=== PATIENT | female | born 1980 ===

== ENCOUNTER 2018-12-18 22:26 | Inpatient (IN) | payer OTHER ==
[2018-12-18] MEDS ORDERED: Sodium Chloride 0.9% 1,000 ML IV STA (23:52)
[2018-12-19 00:26] LABS: BASO % 0.2 % (0.0-2.0); EOS % 0.3 % (0.0-4.0); HEMOGLOBIN 12.8 g/dL (11.0-16.0); LYMPH # 0.5 K/uL (1.0-4.3); LYMPH % 3.6 % (20.0-40.0); MEAN CELL VOLUME 90.2 fL (81.0-99.0); MEAN CORPUSCULAR HEMOGLOBIN 29.4 pg (27.0-31.0); MEAN CORPUSCULAR HGB CONC 32.6 g/dL (33.0-37.0); MEAN PLATELET VOLUME 8.9 fL (7.2-11.7); MONO # 0.6 K/uL (0.0-0.8); MONO % 4.6 % (0.0-10.0); NEUT # 12.4 K/uL (1.8-7.0); NEUT % 91.3 % (50.0-75.0); PLATELET COUNT 280 K/uL (130-400); RBC 4.34 Mil/uL (3.80-5.20); RED CELL DISTRIBUTION WIDTH 13.9 % (11.5-14.5); WHITE BLOOD COUNT 13.6 K/uL (4.8-10.8)
[2018-12-19 00:31] LABS: VENOUS BLOOD GAS BASE EXCESS 1.7 mmol/L (0.0-2.0); VENOUS BLOOD GAS PCO2 38 mmHg (40-60); VENOUS BLOOD GAS PO2 32 mm/Hg (30-55); VENOUS BLOOD PH 7.44 (7.32-7.43)
[2018-12-19 00:40] LABS: ALB/GLOB RATIO 1.3 (1.0-2.1); ALBUMIN 4.1 g/dL (3.5-5.0); ALT/SGPT 18 U/L (9-52); AMYLASE 102 U/L (30-110); AST/SGOT 20 U/L (14-36); BLOOD UREA NITROGEN 15 mg/dL (7-17); CALCIUM 8.5 mg/dl (8.6-10.4); GFR NON-AFRICAN AMERICAN > 60; LIPASE 81 U/L (23-300)
[2018-12-19 01:24] LABS: HCG,QUALITATIVE URINE NEGATIVE (NEGATIVE)
[2018-12-19 01:28] LABS: SQUAMOUS EPITHIAL 2 /hpf (0-5); URINE BACTERIA RARE (<OCC); URINE BILIRUBIN NEGATIVE (NEGATIVE); URINE CLARITY Clear (Clear); URINE COLOR Straw (YELLOW); URINE GLUCOSE (UA) NORMAL (Normal); URINE LEUKOCYTE ESTERASE 2+ Leu/uL (Negative); URINE PROTEIN NEGATIVE (NEGATIVE); URINE UROBILINOGEN NORMAL mg/dL (0.2-1.0)
--- NOTE | 2018-12-19 01:45 | C.PDOC ---
History Of Present Illness 38 year old female presents to the emergency department with complaints of headache, bodyaches, vomiting, and diffuse abdominal pain which began this morning. Patient also reports developing a fever and taking Tylenol at noon, but the fever returned. Upon arrival, patient's temperature was measured to be 102.8F. HPI: Influenza Time Seen by Provider: 12/18/18 23:19 Chief Complaint: Flu-like Symptoms History Per: Patient Exam Limitations: no limitations Onset/Duration Of Symptoms: Hrs Symptoms include: fever, headache, bodyaches, vomiting Past Medical History Reviewed: Historical Data, Nursing Documentation, Vital Signs Vital Signs: Last Vital Signs Temp 102.8 F H 12/18/18 22:44 Pulse 129 H 12/18/18 22:44 Resp 20 12/18/18 22:44 BP 107/70 12/18/18 22:44 Pulse Ox 100 12/18/18 22:44 - Medical History PMH: Gastritis Surgical History: Appendectomy Family History: States: No Known Family Hx - Social History Hx Alcohol Use: No Hx Substance Use: No - Immunization History Hx Tetanus Toxoid Vaccination: No Hx Influenza Vaccination: No Hx Pneumococcal Vaccination: No Review Of Systems Except As Marked, All Systems Reviewed And Found Negative. Constitutional: Positive for: Fever Gastrointestinal: Positive for: Vomiting, Abdominal Pain Musculoskeletal: Positive for: Other (body aches) Neurological: Positive for: Headache Physical Exam - Physical Exam Appears: Non-toxic, No Acute Distress Skin: Normal Color, Warm, Dry Head: Atraumatic, Normacephalic Eye(s): bilateral: Normal Inspection, PERRL, EOMI Ear(s): Bilateral: Normal Nose: Normal Oral Mucosa: Moist Throat: Normal, No Erythema, No Exudate Neck: Normal, Supple Chest: Symmetrical, No Tenderness Cardiovascular: Rhythm Regular, No Murmur Respiratory: Normal Breath Sounds, No Rales, No Rhonchi, No Wheezing Gastrointestinal/Abdominal: Soft, Tenderness (diffuse), No Guarding, No Rebound Neurological/Psych: Oriented x3, Normal Speech, Normal Cognition - Laboratory Results Result Diagrams: 12/19/18 00:21 12/19/18 00:21 Lab Results: pO2 32 mm/Hg (30-55) 12/19/18 00:28 VBG pH 7.44 (7.32-7.43) H 12/19/18 00:28 VBG pCO2 38 mmHg (40-60) L 12/19/18 00:28 VBG HCO3 25.4 mmol/L 12/19/18 00:28 VBG Total CO2 27.0 mmol/L (22-28) 12/19/18 00:28 VBG O2 Sat (Calc) 68.7 % (40-65) H 12/19/18 00:28 VBG Base Excess 1.7 mmol/L (0.0-2.0) 12/19/18: VBG Potassium 3.5 mmol/L (3.6-5.2) L 12/19/18:28 Sodium 135.0 mmol/l (132-148) 12/19/18:28 Chloride 102.0 mmol/L (98-107) 12/19/18: Glucose 112 mg/dl (65-105) H 12/19/18 00:28 Lactate 1.0 mmol/L (0.7-2.1) 12/19/18: Total Bilirubin 0.5 mg/dL (0.2-1.3) 12/19/18 00:21 AST 20 U/L (14-36) 12/19/18 00:21 ALT 18 U/L (9-52) 12/19/18 00:21 Alkaline Phosphatase 87 U/L (38-126) 12/19/18 00:21 Total Protein 7.2 g/dL (6.3-8.3) 12/19/18 00:21 Albumin 4.1 g/dL (3.5-5.0) 12/19/18 00:21 Globulin 3.1 gm/dL (2.2-3.9) 12/19/18 00: Albumin/Globulin Ratio 1.3 (1.0-2.1) 12/19/18 00:21 Amylase 102 U/L (30-110) 12/19/18 00:21 Lipase 81 U/L (23-300) 12/19/18 00:21 Urine HCG, Qual Negative (NEGATIVE) 12/19/18 01:17 Urine HCG, Qual Negative (NEGATIVE) 12/19/18 01:17 - ECG O2 Sat by Pulse Oximetry: 100 - Progress ED Course And Treament: Plan: VBG Chemistry CBC CXR Motrin 600mg PO NaCl IV Fluids Zofran 4mg IVP Blood Culture Urine Culture Influenza Serology HCG Qualitative Urine Urinalysis Lactate negative, white count elevated, flu serology negative. Upon re-evaluation, patient's temperature decreased and blood pressure decreased. Patient found to have positive orthostatic vitals. Patient started on fluids again. Rocephin IV started for UTI. 03:45, hospitalist contacted with no answer. 4:00 hospitalist contacted with no answer. 4:46 hospitalist contacted. - Physician Consult Information Physician Contacted: Bang Riley Outcome Of Conversation: accepted to [place] for observation Disposition - Disposition Disposition: HOSPITALIZED Disposition Time: 05:23 Condition: FAIR - Clinical Impression Clinical Impression: Influenza-like illness, Lightheadedness, UTI (urinary tract infection) - PA / [employer]ER / Resident Statement MD/DO has reviewed & agrees with the documentation as recorded. - Scribe Statement The provider has reviewed the documentation as recorded by the Scribe (Aris Medellin) All medical record entries made by the Scribe were at my direction and personall y dictated by me. I have reviewed the chart and agree that the record accurately reflects my personal performance of the history, physical exam, medical decision making, and the department course for this patient. I have also personally directed, reviewed, and agree with the discharge instructions and disposition. Decision To Admit - Pt Status Changed To: Hospital Disposition Of: Observation - . Bed Request Type: Regular Admitting Physician: Bang Riley Patient Diagnosis: Influenza-like illness, Lightheadedness, UTI (urinary tract infection)
[2018-12-19 02:04] LABS: BANDS 3 % (0-2); LYMPHOCYTE 3 % (20-40); MONOCYTE 4 % (0-10); NEUTROPHIL 90 % (50-75); PLATELET ESTIMATE NORMAL (NORMAL); TOTAL CELLS COUNTED 100
[2018-12-19 02:12] LABS: URINE BLOOD NEGATIVE (NEGATIVE)
[2018-12-19] MEDS ORDERED: Sodium Chloride 0.9% 1,000 ML IV STA ×2 (03:28→05:22)
[2018-12-19] MEDS ORDERED: Sodium Chloride 0.9% 1,000 ML ONE (05:31)
--- NOTE | 2018-12-19 05:34 | CP.PCM.HP ---
<Naveen Hurst - Last Filed: 12/19/18 06:37> History of Present Illness - History of Present Illness History of Present Illness: cc my whole body hurts and it jara when i pee and i have fevers help me 38F with a PMHx of anemia presents to the ED with a 5 day hx of intermittent dysuria/urinary frequency and a one day hx of fevers, abdominal discomfort, generalized body aches and nausea w/ vomiting x2. Pt says todays symptoms of fevers and myalgias began very quickly. Pt reports taking tylenol 500mg which helped with the fevers and aches but after a short time began to feel worse. States she vomited her food and felt very nauseas. Pt also reports a headache and feeling weak since the onset of todays symptoms. She denies any change in urine color, change in stools, night sweats, recent weight loss, sore throat, dysphagia. Pt denies any sick contacts at home. ROS: pos+ fevers, N/V, Abd pain, headache, dysuria, increased frequency, myalgias, generalized body aches w/ fatigue, vomit x2 neg- CP, SOb, Palps, cough, blood in urine/ stool/ vomit, seizures, sick contacts, recent travel, recent illness, weight changes, PMD: none PMHx: anemia PSx: Appendectomy 1998 in [place], R knee Sx 2010 in [place] FH: Mom DM HTN, grandfather CVA SocHx: lives home with 3 kids, and father, stay at home mom, denies smoking ETOH or drugs Present on Admission - Present on Admission Any Indicators Present on Admission: No Review of Systems - Constitutional Constitutional: Fever, Headache - Gastrointestinal Gastrointestinal: Abdominal Pain, Vomiting - Genitourinary Genitourinary: Dysuria, Urinary Frequency - Musculoskeletal Musculoskeletal: Muscle Weakness, Myalgias - Neurological Neurological: Dizziness, Headaches Past Patient History - Past Social History Smoking Status: Never Smoked - GASTROINTESTINAL Hx Gastritis: Yes - PSYCHIATRIC Hx Substance Use: No - SURGICAL HISTORY Hx Appendectomy: Yes - ANESTHESIA Hx Anesthesia: Yes Hx Anesthesia Reactions: No Meds Allergies/Adverse Reactions: Allergies Allergy/AdvReac Type Severity Reaction Status Date / Time No Known Allergies Allergy Verified 12/18/18 22:50 Physical Exam - Constitutional Appears: Non-toxic, No Acute Distress - Head Exam Head Exam: ATRAUMATIC, NORMAL INSPECTION - Eye Exam Eye Exam: EOMI, Normal appearance - ENT Exam ENT Exam: Mucous Membranes Moist - Neck Exam Neck exam: Positive for: Normal Inspection. Negative for: Lymphadenopathy - Respiratory Exam Respiratory Exam: Clear to Auscultation Bilateral, NORMAL BREATHING PATTERN. absent: Rales, Wheezes - Cardiovascular Exam Cardiovascular Exam: RRR, +S1, +S2 - GI/Abdominal Exam GI & Abdominal Exam: Soft, Tenderness (w/ deep palpation of lower quadrants). absent: Distended, Firm, Rigid - Exam Additional comments: suprapuibic tenderness, no bladder fullness felt - Extremities Exam Extremities exam: Positive for: pedal pulses present - Neurological Exam Neurological exam: Alert, CN II-XII Intact, Normal Gait, Oriented x3 - Psychiatric Exam Psychiatric exam: Normal Affect, Normal Mood - Skin Skin Exam: Dry, Normal Color, Warm Results - Vital Signs Recent Vital Signs: Last Vital Signs Temp 99.3 F 12/19/18 02:38 Pulse 86 12/19/18 02:38 Resp 16 12/19/18 02:38 BP 97/62 L 12/19/18 02:38 Pulse Ox 100 12/19/18 05:24 - Labs Result Diagrams: 12/19/18 00:21 12/19/18 00:21 Labs: Laboratory Results - last 24 hr 12/18/18 12/19/18 12/19/18 23:24 00:21 00:21 WBC 13.6 H RBC 4.34 Hgb 12.8 Hct 39.1 MCV 90.2 MCH 29.4 MCHC 32.6 L RDW 13.9 Plt Count 280 MPV 8.9 Neut % (Auto) 91.3 H Lymph % (Auto) 3.6 L [place] % (Auto) 4.6 Eos % (Auto) 0.3 Baso % (Auto) 0.2 Neut # (Auto) 12.4 H Lymph # (Auto) 0.5 L [place] # (Auto) 0.6 Eos # (Auto) 0.0 Baso # (Auto) 0.0 Neutrophils % (Manual) 90 H Band Neutrophils % 3 H Lymphocytes % (Manual) 3 L Monocytes % (Manual) 4 Platelet Estimate Normal pO2 VBG pH VBG pCO2 VBG HCO3 VBG Total CO2 VBG O2 Sat (Calc) VBG Base Excess VBG Potassium Glucose Lactate Sodium 134 Potassium 3.9 Chloride 100 Carbon Dioxide 26 Anion Gap 12 BUN 15 Creatinine 0.7 Est GFR ( Amer) > 60 Est GFR (Non-Af Amer) > 60 Random Glucose 112 H Calcium 8.5 L Total Bilirubin 0.5 AST 20 ALT 18 Alkaline Phosphatase 87 Total Protein 7.2 Albumin 4.1 Globulin 3.1 Albumin/Globulin Ratio 1.3 Amylase 102 Lipase 81 Venous Blood Potassium Urine Color Urine Clarity Urine pH Ur Specific [place] Urine Protein Urine Glucose (UA) Urine Ketones Urine Blood Urine Nitrate Urine Bilirubin Urine Urobilinogen Ur Leukocyte Esterase Urine WBC (Auto) Urine RBC (Auto) Ur Squamous Epith Cells Urine Bacteria Urine HCG, Qual Influenza Typ A,B (EIA) Negative for flu a/b 12/19/18 12/19/18 00:28 01:17 WBC RBC Hgb Hct MCV MCH MCHC RDW Plt Count MPV Neut % (Auto) Lymph % (Auto) [place] % (Auto) Eos % (Auto) Baso % (Auto) Neut # (Auto) Lymph # (Auto) [place] # (Auto) Eos # (Auto) Baso # (Auto) Neutrophils % (Manual) Band Neutrophils % Lymphocytes % (Manual) Monocytes % (Manual) Platelet Estimate pO2 32 VBG pH 7.44 H VBG pCO2 38 L VBG HCO3 25.4 VBG Total CO2 27.0 VBG O2 Sat (Calc) 68.7 H VBG Base Excess 1.7 VBG Potassium 3.5 L Glucose 112 H Lactate 1.0 Sodium 135.0 Potassium Chloride 102.0 Carbon Dioxide Anion Gap BUN Creatinine Est GFR ( Amer) Est GFR (Non-Af Amer) Random Glucose Calcium Total Bilirubin AST ALT Alkaline Phosphatase Total Protein Albumin Globulin Albumin/Globulin Ratio Amylase Lipase Venous Blood Potassium 3.5 L Urine Color Straw Urine Clarity Clear Urine pH 6.0 Ur Specific [place] 1.003 Urine Protein Negative Urine Glucose (UA) Normal Urine Ketones Negative Urine Blood Negative Urine Nitrate Negative Urine Bilirubin Negative Urine Urobilinogen Normal Ur Leukocyte Esterase 2+ H Urine WBC (Auto) 32 H Urine RBC (Auto) < 1 Ur Squamous Epith Cells 2 Urine Bacteria Rare Urine HCG, Qual Negative Influenza Typ A,B (EIA) Assessment & Plan - Assessment and Plan (Free Text) Assessment: SIRS/ Sepsis/ Urosepsis -Tmax >102, WBCs 13.6, UA: +leuk est, neg lactate in VBG shock -Ceftriaxone, tamiflu with 3L NS bolus given once in ED -Ceftriaxone 1g q12 IVPB -LR's @150 -Tylenol 650mg po q6 for fever -f/u blood cultures, urine cultures -f/u am labs -2/2 to underlying UTI likely source Flu Like Illness -Generalized body aches -Influenza rapid test neg -Tamiflu 75mg BID -3L NS given in ED -LRs @150 -Tylenol 650 po q6 Nausea with Vomiting -Zofran 4mg q4 IVP -LRs @ 150 -advance diet as tolerated Hypotension -monitor orthostatics -sbp in 90s despite 2L of fluids -currently resolved -LRs @150 -monitor I&Os Hx of Anemia -Monitor H&H -wnl PPx Pepcid 20mg po qd HHD <Bang Riley - Last Filed: 12/20/18 05:54> Results - Vital Signs Recent Vital Signs: Last Vital Signs Temp 98.5 F 12/20/18 04:15 Pulse 113 H 12/20/18 00:00 Resp 20 12/20/18 00:00 BP 111/64 12/20/18 00:00 Pulse Ox 100 12/20/18 00:00 - Labs Result Diagrams: 12/19/18 08:13 12/19/18 00:21 Labs: Laboratory Results - last 24 hr 12/19/18 12/19/18 12/19/18 08:13 12:00 16:24 WBC 10.3 RBC 3.89 Hgb 11.5 Hct 35.6 MCV 91.4 MCH 29.6 MCHC 32.4 L RDW 14.1 Plt Count 242 MPV 9.2 Neut % (Auto) 82.9 H Lymph % (Auto) 9.4 L [place] % (Auto) 6.9 Eos % (Auto) 0.4 Baso % (Auto) 0.4 Neut # (Auto) 8.5 H Lymph # (Auto) 1.0 [place] # (Auto) 0.7 Eos # (Auto) 0.0 Baso # (Auto) 0.0 Neutrophils % (Manual) 81 H Band Neutrophils % 2 Lymphocytes % (Manual) 8 L Monocytes % (Manual) 9 Platelet Estimate Normal Anisocytosis (manual) Slight POC Glucose (mg/dL) 102 Procalcitonin 4.40 H 12/19/18 21:06 WBC RBC Hgb Hct MCV MCH MCHC RDW Plt Count MPV Neut % (Auto) Lymph % (Auto) [place] % (Auto) Eos % (Auto) Baso % (Auto) Neut # (Auto) Lymph # (Auto) [place] # (Auto) Eos # (Auto) Baso # (Auto) Neutrophils % (Manual) Band Neutrophils % Lymphocytes % (Manual) Monocytes % (Manual) Platelet Estimate Anisocytosis (manual) POC Glucose (mg/dL) 137 H Procalcitonin Assessment & Plan - Date & Time Date: 12/20/18 (I have seen and examined the patient. I agree with the findings and plan of care as documented by Dr. Hurst. Patient with pyelonephritis. SIRS positive. Hypotensive episodes. Monitor for sepsis. Initially on Rocephin. Changed to Merrem. Urine and blood cultures. Nausea and vomiting likely associated with pyelo. Symptomatic treatment. Monitor for acute changes.) Time: 05:51 Attending/Attestation - Attestation I have personally seen and examined this patient.: Yes I have fully participated in the care of the patient.: Yes I have reviewed all pertinent clinical information: Yes
[2018-12-19 08:17] LABS: BASO % 0.4 % (0.0-2.0); EOS % 0.4 % (0.0-4.0); HEMOGLOBIN 11.5 g/dL (11.0-16.0); LYMPH % 9.4 % (20.0-40.0); MEAN CELL VOLUME 91.4 fL (81.0-99.0); MEAN CORPUSCULAR HEMOGLOBIN 29.6 pg (27.0-31.0); MEAN CORPUSCULAR HGB CONC 32.4 g/dL (33.0-37.0); MEAN PLATELET VOLUME 9.2 fL (7.2-11.7); MONO # 0.7 K/uL (0.0-0.8); MONO % 6.9 % (0.0-10.0); NEUT # 8.5 K/uL (1.8-7.0); NEUT % 82.9 % (50.0-75.0); PLATELET COUNT 242 K/uL (130-400); RBC 3.89 Mil/uL (3.80-5.20); RED CELL DISTRIBUTION WIDTH 14.1 % (11.5-14.5); WHITE BLOOD COUNT 10.3 K/uL (4.8-10.8)
[2018-12-19 11:09] LABS: BANDS 2 % (0-2); LYMPHOCYTE 8 % (20-40); MONOCYTE 9 % (0-10); NEUTROPHIL 81 % (50-75); PLATELET ESTIMATE NORMAL (NORMAL); TOTAL CELLS COUNTED 100
[2018-12-19 11:13] LABS: ANISOCYTOSIS SLIGHT
[2018-12-19] MEDS: Lactated Ringer's 1,000 ML IV SCH ×3 (12:16→19:10)
[2018-12-19] MEDS: Saccharomyces Boulardi 250 mg Cap PO SCH ×2 (12:16→17:56)
--- NOTE | 2018-12-19 14:44 | CT ---
Date of service: 12/19/2018 PROCEDURE: CT Abdomen and Pelvis without intravenous contrast HISTORY: positive uti, r/o stone COMPARISON: None. TECHNIQUE: Axial and reformatted coronal and sagittal CT images of abdomen and pelvis were obtained without IV or oral contrast administration.. Contrast dose: 0 Radiation dose: Total exam DLP = 557.36 mGy-cm. This CT exam was performed using one or more of the following dose reduction techniques: Automated exposure control, adjustment of the mA and/or kV according to patient size, and/or use of iterative reconstruction technique. FINDINGS: LOWER THORAX: No evidence of acute pathology LIVER: Unremarkable. No gross lesion or ductal dilatation. GALLBLADDER AND BILE DUCTS: Unremarkable. PANCREAS: Unremarkable. No gross lesion or ductal dilatation. SPLEEN: Unremarkable. ADRENALS: Unremarkable. No mass. KIDNEYS AND URETERS: There is 3 millimeter nonobstructing calculus at the lower pole of the left kidney. There is also 4 millimeter nonobstructing calculus at the midpole of the left kidney. There is focal defect seen in the left kidney cortex likely due to prior infection or infarction. No evidence of right renal calculi. No evidence of significant hydronephrosis VASCULATURE: Unremarkable. No aortic aneurysm. No aortic atherosclerotic calcification or mural plaque present. BOWEL: Unremarkable. No obstruction. No gross mural thickening. APPENDIX: No evidence of appendicitis. PERITONEUM: Unremarkable. No free fluid. No free air. LYMPH NODES: Unremarkable. No enlarged lymph nodes. BLADDER: Mild to moderate urinary bladder wall thickening is noted. REPRODUCTIVE: The uterus is enlarged. BONES: No acute fracture. OTHER FINDINGS: None. IMPRESSION: Two nonobstructing renal calculi in the left kidney. No evidence of hydronephrosis or hydroureter. [id number] urinary bladder wall thickening. Correlate clinically for cystitis. Mildly enlarged heterogeneous uterus.
[2018-12-19] MEDS ORDERED: Iohexol 240 (50 ml) PO ONE (14:45)
[2018-12-19] MEDS ORDERED: Iodixanol 320 MG/ML 100 ML BOTTLE IV ONE (18:21)
[2018-12-19] MEDS: Meropenem 1 GM in Sodium Chloride 0.9% 100 ML IVPB SCH (20:16)
[2018-12-20] MEDS: Lactated Ringer's 1,000 ML IV SCH ×3 (02:00→21:45)
[2018-12-20] MEDS: Meropenem 1 GM in Sodium Chloride 0.9% 100 ML IVPB SCH ×3 (04:17→19:39)
--- NOTE | 2018-12-20 07:47 | CP.PCM.PN ---
<Adarsh Lindsay - Last Filed: 12/20/18 16:10> Subjective - Date & Time of Evaluation Date of Evaluation: 12/20/18 Time of Evaluation: 10:00 - Subjective Subjective: PGY1 Medicine progress note for Dr. Lewis Pt was seen and evaluated at bedside. Per the nurse, pt experienced fever (102.5 F) overnight, and was given Tylenol. There were no other acute events overnight. At present, pt is still complaining of flank pain (left greater than right). She does not feel that she is improving.. She had one episode of nonbloody emesis yesterday night but did not notify the nurse, but at present, she denies feeling nauseous. Pt is complaining of some dizziness, but denies fall or any other trauma. She also endorses a frontal headache. She continues to reports dysuria, denies hematuria. She denies blurry vision, hearing impairments, dysphagia, odynophagia, chest pain, palpitations, SOB, diarrhea, body aches, numbness, paresthesias, or any other associated symptoms at this time. Objective - Vital Signs/Intake and Output Vital Signs (last 24 hours): Temp Pulse Resp BP Pulse Ox 98.5 F 113 H 20 111/64 100 12/20/18 04:15 12/20/18 00:00 12/20/18 00:00 12/20/18 00:00 12/20/18 00:00 Intake and Output: 12/20/18 12/20/18 06:59 18:59 Intake Total 1575 Output Total 1450 Balance 125 - Medications Medications: Current Medications Acetaminophen (Tylenol 325mg Tab) 650 mg PO Q6 PRN PRN Reason: Fever >100.4 F Last Admin: 12/20/18 01:49 Dose: 650 mg Ascorbic Acid (Vitamin C 500 Mg Tab) 500 mg PO DAILY [facility] Last Admin: 12/19/18 12:17 Dose: 500 mg Lactated Ringer's (Lactated Ringer's) 1,000 mls @ 150 mls/hr IV .Q6H40M [facility] Last Admin: 12/20/18 02:00 Dose: 150 mls/hr Meropenem 1 gm/ Sodium (Chloride) 100 mls @ 100 mls/hr IVPB Q8H [facility]; Protocol Last Admin: 12/20/18 04:17 Dose: 100 mls/hr Morphine Sulfate (Morphine) 2 mg IVP Q4 PRN PRN Reason: Pain, moderate (4-7) Ondansetron HCl (Zofran Inj) 4 mg IVP Q4 PRN PRN Reason: Nausea/Vomiting Oseltamivir Phosphate (Tamiflu Cap) 75 mg PO BID [facility]; Protocol Stop: 12/24/18 06:09 Last Admin: 12/19/18 17:56 Dose: 75 mg Saccharomyces Boulardii (Florastor) 250 mg PO BID [facility] Last Admin: 12/19/18 17:56 Dose: 250 mg Tamsulosin HCl (Flomax) 0.4 mg PO DAILY [facility] Last Admin: 12/19/18 19:32 Dose: 0.4 mg - Labs Labs: 12/19/18 08:13 12/19/18 00:21 - Additional Findings Additional findings: - Constitutional Appears: Non-toxic, No Acute Distress - Head Exam Head Exam: ATRAUMATIC, NORMAL INSPECTION - Eye Exam Eye Exam: EOMI, Normal appearance - ENT Exam ENT Exam: Mucous Membranes Moist - Neck Exam Neck exam: Positive for: Normal Inspection. Negative for: Lymphadenopathy - Respiratory Exam Respiratory Exam: Clear to Auscultation Bilateral, NORMAL BREATHING PATTERN. absent: Rales, Wheezes - Cardiovascular Exam Cardiovascular Exam: RRR, +S1, +S2 - GI/Abdominal Exam GI & Abdominal Exam: Soft, Tenderness (in all four quadrants). absent: Distended, Firm, Rigid - Exam Bilateral CVA tenderness (left greater than right) Additional comments: suprapuibic tenderness - Extremities Exam Extremities exam: Positive for: pedal pulses present - Neurological Exam Neurological exam: Alert, CN II-XII Intact, Normal Gait, Oriented x3 - Psychiatric Exam Psychiatric exam: Normal Affect, Normal Mood - Skin Skin Exam: Dry, Normal Color, Warm Assessment and Plan - Assessment and Plan (Free Text) Assessment: 38F with a PMHx of anemia, pyelonephritis, nephrolithiasis presents to the ED with a 5 day hx of intermittent dysuria/urinary frequency and a one day hx of fevers, abdominal discomfort, generalized body aches and nausea w/ vomiting x2. Found to have sepsis secondary to clinical pyelonephritis, as well as nonobstructing stones Plan: Sepsis secondary to pyelonephritis Tmax 102.5, remains tachycardic Bandemia of 3 with Leukocytosis of 13.6, hypotensino requiring 3L IVF on admission Bands resolved, leucocytosis resolved, BP is in 100 Systolic, 70s diastolic Rocephin discontinued Merrem 1g q8 started (12/19) for pyelonephritis, as pt is high risk for MDR, due to recent admission for pyelonephritis in [facility]. Pt given 1 dose of gentamicin (12/20) as minimal clinical improvement after Rocephin and Merrem Tylenol 650 mg PO PRN fever/pain Morphine for pain BC x2 prelim negative x 24 hours UCx negative Infectious disease, Dr. Edwards, consulted. Nephrolithiasis Abd/Pelv CT without contrast showed 2 non obstructing stones, both less than 5 mm. No evidence of hydronephrosis or hydroureter. Mild to moderate urinary bladder wall thickening. Mildly enlarged heterogeneous uterus. Morphine 2 mg IVP q4h PRN LR at 150, Tamsulosin 0.4 mg PO daily Will strain urine Abdominal pain with Nausea with Vomiting, likely due to pyelonephritis Urine HCG is negative Abdominal/pelvic CT with PO/IV contrast shows probably acute pyelonephritis lower pole left kidney. Cortical scar upper pole left kidney. No evidence of urinary tract obstruction. Minimal fluid in cul-de-sac. Suspect fluid in endometrial cavity. Zofran 4mg q4 IVP Morphine as above Flu Like Illness Generalized body aches Influenza rapid test neg Tamiflu 75mg BID discontinued Contact precautions discontinued Hx of Anemia H/H is stable and WNL PPx No indication for GI ppx at this time SCDs for VTE ppx HHD Case discussed with Dr. Lewis <Shawn Lewis - Last Filed: 12/20/18 17:47> Objective - Vital Signs/Intake and Output Vital Signs (last 24 hours): Temp Pulse Resp BP Pulse Ox 102.8 F H 103 H 20 118/71 100 12/20/18 17:12 12/20/18 17:12 12/20/18 17:12 12/20/18 17:12 12/20/18 17:12 Intake and Output: 12/20/18 12/20/18 06:59 18:59 Intake Total 1575 2700 Output Total 1450 4000 Balance 125 -1300 - Medications Medications: Current Medications Acetaminophen (Tylenol 325mg Tab) 650 mg PO Q6 PRN PRN Reason: Fever >100.4 F Last Admin: 12/20/18 08:43 Dose: 650 mg Ascorbic Acid (Vitamin C 500 Mg Tab) 500 mg PO DAILY [facility] Last Admin: 12/20/18 12:36 Dose: 500 mg Lactated Ringer's (Lactated Ringer's) 1,000 mls @ 150 mls/hr IV .Q6H40M [facility] Last Admin: 12/20/18 15:26 Dose: 150 mls/hr Meropenem 1 gm/ Sodium (Chloride) 100 mls @ 100 mls/hr IVPB Q8H [facility]; Protocol Last Admin: 12/20/18 12:36 Dose: 100 mls/hr Gentamicin Sulfate/Sodium Chloride (Gentamicin 80mg/100ml Ns) 80 mg in 100 mls @ 100 mls/hr IVPB Q8H [facility] Morphine Sulfate (Morphine) 2 mg IVP Q4 PRN PRN Reason: Pain, moderate (4-7) Ondansetron HCl (Zofran Inj) 4 mg IVP Q4 PRN PRN Reason: Nausea/Vomiting Saccharomyces Boulardii (Florastor) 250 mg PO BID [facility] Last Admin: 12/20/18 12:29 Dose: Not Given Tamsulosin HCl (Flomax) 0.4 mg PO DAILY [facility] Last Admin: 12/20/18 12:30 Dose: Not Given - Labs Labs: 12/20/18 11:29 12/20/18 11:29 Attending/Attestation - Attestation I have personally seen and examined this patient.: Yes I have fully participated in the care of the patient.: Yes I have reviewed all pertinent clinical information, including history, physical exam and plan: Yes
[2018-12-20] MEDS: Saccharomyces Boulardi 250 mg Cap PO SCH ×3 (08:44→18:39)
[2018-12-20 11:53] LABS: BASO % 0.2 % (0.0-2.0); EOS % 0.1 % (0.0-4.0); HEMOGLOBIN 11.6 g/dL (11.0-16.0); LYMPH % 9.1 % (20.0-40.0); MEAN CELL VOLUME 90.1 fL (81.0-99.0); MEAN CORPUSCULAR HEMOGLOBIN 29.9 pg (27.0-31.0); MEAN CORPUSCULAR HGB CONC 33.2 g/dL (33.0-37.0); MEAN PLATELET VOLUME 8.7 fL (7.2-11.7); MONO % 9.7 % (0.0-10.0); NEUT # 8.5 K/uL (1.8-7.0); NEUT % 80.9 % (50.0-75.0); PLATELET COUNT 238 K/uL (130-400); RBC 3.87 Mil/uL (3.80-5.20); RED CELL DISTRIBUTION WIDTH 13.7 % (11.5-14.5); WHITE BLOOD COUNT 10.5 K/uL (4.8-10.8)
[2018-12-20 12:08] LABS: ALB/GLOB RATIO 1.2 (1.0-2.1); ALBUMIN 3.4 g/dL (3.5-5.0); ALT/SGPT 14 U/L (9-52); AST/SGOT 21 U/L (14-36); BLOOD UREA NITROGEN 4 mg/dL (7-17); CALCIUM 8.2 mg/dl (8.6-10.4); GFR NON-AFRICAN AMERICAN > 60
--- NOTE | 2018-12-20 12:19 | CT ---
Date of service: 12/19/2018 PROCEDURE: CT Abdomen and Pelvis with contrast HISTORY: r/o intrabdominal pathology, abdominal pain COMPARISON: 11:40 a.m. TECHNIQUE: Contrast dose: 100 mL Visipaque 320 Radiation dose: Total exam DLP = 1021.28 mGy-cm. This CT exam was performed using one or more of the following dose reduction techniques: Automated exposure control, adjustment of the mA and/or kV according to patient size, and/or use of iterative reconstruction technique. FINDINGS: LOWER THORAX: Unremarkable. LIVER: Unremarkable. No gross lesion or ductal dilatation. GALLBLADDER AND BILE DUCTS: Unremarkable. No calcified gallstones. No mural thickening. PANCREAS: Unremarkable. No gross lesion or ductal dilatation. SPLEEN: Unremarkable. ADRENALS: Unremarkable. No mass. KIDNEYS AND URETERS: Multiple small nonobstructing left renal calculi as seen on the earlier examination of the same date. There are bands of diminished or no enhancement extending through the medullary and cortical aspect of the kidney in the lower pole left kidney consistent with focal pyelonephritis. There is no perinephric abscess. There is no right renal calculus. There is no hydronephrosis. There is no renal mass. There is nonspecific cortical scar upper pole left kidney, possibly old infarct or prior infection. VASCULATURE: Unremarkable. No aortic aneurysm. No aortic atherosclerotic calcification or mural plaque present. BOWEL: Unremarkable. No obstruction. No gross mural thickening. APPENDIX: Appendix not identified. No secondary findings to suggest acute appendicitis. PERITONEUM: Minimal fluid in cul-de-sac. LYMPH NODES: Unremarkable. No enlarged lymph nodes. BLADDER: The bladder is mildly thick-walled, suggestive of cystitis. It is suboptimally distended. Nevertheless, correlate with urinalysis. REPRODUCTIVE: The uterus is significant for what appears to be endometrial fluid. Correlate with pelvic ultrasound examination. Stick significance uncertain. Possible cervical stenosis. Incidental 1.7 cm right ovarian cyst, presumed physiologic. Irregularly-shaped peripherally enhancing structure in right ovary measures 13 mm. Likely involuting or ruptured follicle. Similar 17 mm peripherally enhancing irregular structure in left ovary. Again, likely involuting or ruptured follicle. BONES: No acute fracture. OTHER FINDINGS: None. IMPRESSION: Probable acute pyelonephritis lower pole left kidney. Multiple small nonobstructing left renal calculi. Cortical scar upper pole left kidney. No evidence of urinary tract obstruction. Probable cystitis. Correlate with urinalysis. Minimal fluid in cul-de-sac. Suspect fluid in endometrial cavity. Correlate with pelvic ultrasound. Additional minor findings as above. These findings were discussed by telephone with the patient's nurse, Moise, at 12:13 a.m. p.m. on 12/20/2018.
[2018-12-20 12:26] LABS: BANDS 1 % (0-2); MONOCYTE 7 % (0-10); NEUTROPHIL 82 % (50-75); PLATELET ESTIMATE NORMAL (NORMAL); TOTAL CELLS COUNTED 100
[2018-12-20 12:27] LABS: ANISOCYTOSIS SLIGHT; HYPOCHROMIC SLIGHT; LYMPHOCYTE 10 % (20-40); POIKILOCYTOSIS SLIGHT
[2018-12-20] MEDS ORDERED: Gentamicin 100mg/100ml NS 100 MG/100 ML BAG IVPB ONE (12:45)
--- NOTE | 2018-12-20 13:16 | RAD ---
HISTORY: fever COMPARISON: None available TECHNIQUE: Chest PA and lateral FINDINGS: LUNGS: No focal consolidation. Please note that chest x-ray has limited sensitivity for the detection of pulmonary masses. PLEURA: No significant pleural effusion identified. No definite pneumothorax . CARDIOVASCULAR: The cardiomediastinal silhouette appears within normal limits of size. No atherosclerotic calcification present. OSSEOUS STRUCTURES: Scoliosis with curvature of the thoracic spine to the right. VISUALIZED UPPER ABDOMEN: Unremarkable. OTHER FINDINGS: None. IMPRESSION: No focal consolidation. Scoliosis with curvature of the thoracic spine to the right.
[2018-12-20] MEDS ORDERED: Gentamicin 80 mg/2mL Inj. IVPB SCH (15:15)
[2018-12-20] MEDS: Gentamicin 80 mg in 0.9% NS 80 MG/100 ML BAG IVPB SCH ×2 (18:39→23:35)
--- NOTE | 2018-12-20 20:48 | CP.PCM.CON ---
History of Present Illness - History of Present Illness History of Present Illness: dictated Past Patient History - Past Social History Smoking Status: Never Smoked - MUSCULOSKELETAL/RHEUMATOLOGICAL Hx Falls: No - GASTROINTESTINAL Hx Gastritis: Yes - PSYCHIATRIC Hx Substance Use: No - SURGICAL HISTORY Hx Appendectomy: Yes - ANESTHESIA Hx Anesthesia: Yes Hx Anesthesia Reactions: No Meds Allergies/Adverse Reactions: Allergies Allergy/AdvReac Type Severity Reaction Status Date / Time No Known Allergies Allergy Verified 12/18/18 22:50 - Medications Medications: Current Medications Acetaminophen (Tylenol 325mg Tab) 650 mg PO Q6 PRN PRN Reason: Fever >100.4 F Last Admin: 12/20/18 08:43 Dose: 650 mg Ascorbic Acid (Vitamin C 500 Mg Tab) 500 mg PO DAILY [facility] Last Admin: 12/20/18 12:36 Dose: 500 mg Lactated Ringer's (Lactated Ringer's) 1,000 mls @ 150 mls/hr IV .Q6H40M [facility] Last Admin: 12/20/18 15:26 Dose: 150 mls/hr Meropenem 1 gm/ Sodium (Chloride) 100 mls @ 100 mls/hr IVPB Q8H [facility]; Protocol Last Admin: 12/20/18 19:39 Dose: 100 mls/hr Gentamicin Sulfate/Sodium Chloride (Gentamicin 80mg/100ml Ns) 80 mg in 100 mls @ 100 mls/hr IVPB Q8H [facility] Last Admin: 12/20/18 18:39 Dose: 100 mls/hr Morphine Sulfate (Morphine) 2 mg IVP Q4 PRN PRN Reason: Pain, moderate (4-7) Last Admin: 12/20/18 18:40 Dose: 2 mg Ondansetron HCl (Zofran Inj) 4 mg IVP Q4 PRN PRN Reason: Nausea/Vomiting Saccharomyces Boulardii (Florastor) 250 mg PO BID [facility] Last Admin: 12/20/18 18:39 Dose: 250 mg Tamsulosin HCl (Flomax) 0.4 mg PO DAILY [facility] Last Admin: 12/20/18 12:30 Dose: Not Given Results - Vital Signs Recent Vital Signs: Last Vital Signs Temp 102.8 F H 12/20/18 17:12 Pulse 103 H 12/20/18 17:12 Resp 20 12/20/18 17:12 BP 118/71 12/20/18 17:12 Pulse Ox 100 12/20/18 17:12 - Labs Result Diagrams: 12/20/18 11:29 12/20/18 11:29 Labs: Laboratory Results - last 24 hr 12/19/18 12/20/18 12/20/18 21:06 06:16 11:29 WBC 10.5 RBC 3.87 Hgb 11.6 Hct 34.9 MCV 90.1 MCH 29.9 MCHC 33.2 RDW 13.7 Plt Count 238 MPV 8.7 Neut % (Auto) 80.9 H Lymph % (Auto) 9.1 L Rains % (Auto) 9.7 Eos % (Auto) 0.1 Baso % (Auto) 0.2 Neut # (Auto) 8.5 H Lymph # (Auto) 1.0 Rains # (Auto) 1.0 H Eos # (Auto) 0.0 Baso # (Auto) 0.0 Neutrophils % (Manual) 82 H Band Neutrophils % 1 Lymphocytes % (Manual) 10 L Monocytes % (Manual) 7 Platelet Estimate Normal Hypochromasia (manual) Slight Poikilocytosis (manual Slight Anisocytosis (manual) Slight Sodium Potassium Chloride Carbon Dioxide Anion Gap BUN Creatinine Est GFR ( Amer) Est GFR (Non-Af Amer) POC Glucose (mg/dL) 137 H 96 Random Glucose Calcium Total Bilirubin AST ALT Alkaline Phosphatase Total Protein Albumin Globulin Albumin/Globulin Ratio 12/20/18 12/20/18 12/20/18 11:29 11:44 16:36 WBC RBC Hgb Hct MCV MCH MCHC RDW Plt Count MPV Neut % (Auto) Lymph % (Auto) Rains % (Auto) Eos % (Auto) Baso % (Auto) Neut # (Auto) Lymph # (Auto) Rains # (Auto) Eos # (Auto) Baso # (Auto) Neutrophils % (Manual) Band Neutrophils % Lymphocytes % (Manual) Monocytes % (Manual) Platelet Estimate Hypochromasia (manual) Poikilocytosis (manual Anisocytosis (manual) Sodium 133 Potassium 3.5 L Chloride 102 Carbon Dioxide 24 Anion Gap 10 BUN 4 L Creatinine 0.5 L Est GFR ( Amer) > 60 Est GFR (Non-Af Amer) > 60 POC Glucose (mg/dL) 99 113 H Random Glucose 118 H Calcium 8.2 L Total Bilirubin 0.3 AST 21 ALT 14 Alkaline Phosphatase 67 Total Protein 6.3 Albumin 3.4 L Globulin 2.9 Albumin/Globulin Ratio 1.2
[2018-12-21] MEDS: Lactated Ringer's 1,000 ML IV SCH ×4 (01:18→22:14)
[2018-12-21] MEDS: Meropenem 1 GM in Sodium Chloride 0.9% 100 ML IVPB SCH ×3 (03:19→22:13)
--- NOTE | 2018-12-21 03:46 | CON ---
DATE: 12/20/2018 INFECTIOUS DISEASE CONSULT REQUESTED BY: Dr. Riley. HISTORY OF PRESENT ILLNESS: She is a 38-year-old female. She says she was sick. On Thursday, she started to feel chills, fever, and she took Tylenol in the morning, and she was okay. In the night, she did have some pains on urination, and she was saying she also was having some high-grade fever. She had an episode of vomiting, and she is still nauseous and complaining of dizziness. She has had antibiotics 4-5 months ago for UTI, and she also complains of some headache and dysuria. She does not know if she has stones, but I did see her CAT scan which showed stones. She denies any ear, nose, or throat problems otherwise. Does complain of headache. Did complain of nausea. Denies any chest pain. She was shaking with shivers when I went to see her in spite of being on meropenem, and so I added gentamicin. She denies any chest pain. No palpitations. No diarrhea. She does have some suprapubic pain at this time. PAST MEDICAL HISTORY: Past history of UTIs in the past. SOCIAL HISTORY: She denies any smoking or drinking. ALLERGIES: DENIES ANY DRUG ALLERGIES. PAST SURGICAL HISTORY: Denies any previous surgeries. MEDICATIONS: She is on meropenem and morphine. They were also giving Tamiflu for flu-like symptoms that she had. She is on . She is also on tamsulosin, and she had some retention issues. PHYSICAL EXAMINATION: VITAL SIGNS: I find her temperature still is 102.8, heart rate of 103, blood pressure 118/71, respirations are 20. HEENT: Head is atraumatic, normocephalic. She is able to communicate. Pupils are reacting to light. NECK: Supple. JVP is flat. LUNGS: Clear. No crackles or rales heard. HEART: S1, S2 are tachycardic. ABDOMEN: Has some suprapubic tenderness. No guarding, no rigidity present. Bowel sounds are present. She says she has not had bowel movement for the last 2 days. EXTREMITIES: Have no edema, clubbing, or cyanosis. LABORATORY DATA: Labs are noted. Labs show blood cultures x2 are negative. Urine culture is negative. Labs show white count is 10.5 today. She came in with a white count of 13.6, hemoglobin is 11.6, hematocrit 34.9, platelet count is 238, and neutrophils are 82, bands are 1, lymphocytes are 10, and influenza was negative. Urine culture shows 2+ leukocytes, wbc 32. Sodium is 133, potassium 3.5, chlorides are 102, CO2 is 24, BUN is 4, creatinine 0.5, albumin is 3.4. Oxygen saturation was only 68.7. Potassium was 3.5, but I am not sure if this was venous or ABG, and looking for abdominal CT. Abdominal CT shows multiple small nonobstructing left renal calculi, and there are bands of diminished or no enhancement extending through the medullary and cortical aspect of the kidney in the lower pole. Left kidney consistent with focal pyelonephritis. There is no perinephric abscess. There is no right renal calculus. There is no hydronephrosis. There is no renal mass. There is nonspecific cortical scar in upper pole of left kidney, possibly old infarct or prior infection, so there is left pyelonephritis at this time, and the bladder showed cystitis, and they were also talking about ileitis. The uterus has significant possible cervical stenosis, incidental 1.7 right ovarian cyst, irregularly shaped peripherally enhancing structure in the right ovary, 13 mm likely involuting or ruptured follicles, small 17 mm peripheral enhancing irregular structure in left ovary which is also maybe involuting or ruptured follicle. DIAGNOSES: Probable acute pyelonephritis in lower left pole of kidney, multiple small nonobstructing left renal calculi, probable cystitis, minimal fluid in cul-de-sac. PLAN: Suspect fluid in the endometrial cavity, correlate with pelvic ultrasound. So at this time, I would leave this patient on Merrem as well as gentamicin, and if she does not improve, she may need gram-positive coverage with vancomycin, but with pyelonephritis, fever can continue for least 48 hours and should be monitored closely and should get Tylenol for fevers. Jorgito Edwards MD
--- NOTE | 2018-12-21 07:31 | CP.PCM.PN ---
<Adarsh Lindsay - Last Filed: 12/21/18 14:48> Subjective - Date & Time of Evaluation Date of Evaluation: 12/21/18 Time of Evaluation: 13:11 - Subjective Subjective: PGY1 Medicine progress note for Dr. Lewis Pt was seen and evaluated at bedside. Per the nurse, pt experienced fever (100.4 F) overnight, and was given Tylenol. She states that she feels much better and has no complaints. She endorses lower abdominal fullness/pressure/pain when urinating, but denies any burning. She denies vision changes, dizziness, lightheadedness, headache, chest pain, palpitations, SOB, abdominal pain, diarrhea, body aches, numbness, paresthesias. Objective - Vital Signs/Intake and Output Vital Signs (last 24 hours): Temp Pulse Resp BP Pulse Ox 97.7 F 72 18 93/58 L 98 12/21/18 06:00 12/21/18 06:00 12/21/18 06:00 12/21/18 06:00 12/21/18 06:00 Intake and Output: 12/21/18 12/21/18 06:59 18:59 Intake Total 2000 Output Total 2200 Balance -200 - Medications Medications: Current Medications Acetaminophen (Tylenol 325mg Tab) 650 mg PO Q6 PRN PRN Reason: Fever >100.4 F Last Admin: 12/21/18 03:25 Dose: 650 mg Ascorbic Acid (Vitamin C 500 Mg Tab) 500 mg PO DAILY [facility] Last Admin: 12/20/18 12:36 Dose: 500 mg Lactated Ringer's (Lactated Ringer's) 1,000 mls @ 150 mls/hr IV .Q6H40M [facility] Last Admin: 12/21/18 05:00 Dose: Not Given Meropenem 1 gm/ Sodium (Chloride) 100 mls @ 100 mls/hr IVPB Q8H [facility]; Protocol Last Admin: 12/21/18 03:19 Dose: 100 mls/hr Gentamicin Sulfate/Sodium Chloride (Gentamicin 80mg/100ml Ns) 80 mg in 100 mls @ 100 mls/hr IVPB Q8H [facility] Last Admin: 12/20/18 23:35 Dose: 100 mls/hr Morphine Sulfate (Morphine) 2 mg IVP Q4 PRN PRN Reason: Pain, moderate (4-7) Last Admin: 12/20/18 18:40 Dose: 2 mg Ondansetron HCl (Zofran Inj) 4 mg IVP Q4 PRN PRN Reason: Nausea/Vomiting Saccharomyces Boulardii (Florastor) 250 mg PO BID [facility] Last Admin: 12/20/18 18:39 Dose: 250 mg Tamsulosin HCl (Flomax) 0.4 mg PO DAILY [facility] Last Admin: 12/20/18 12:30 Dose: Not Given - Labs Labs: 12/20/18 11:29 12/20/18 11:29 - Additional Findings Additional findings: - Constitutional Appears: Non-toxic, No Acute Distress. Smiling - Head Exam Head Exam: ATRAUMATIC, NORMAL INSPECTION - Eye Exam Eye Exam: EOMI, Normal appearance - ENT Exam ENT Exam: Mucous Membranes Moist - Neck Exam Neck exam: Normal Inspection. Negative for: Lymphadenopathy - Respiratory Exam Respiratory Exam: Clear to Auscultation Bilateral, NORMAL BREATHING PATTERN. absent: Rales, Wheezes - Cardiovascular Exam Cardiovascular Exam: RRR, +S1, +S2 - GI/Abdominal Exam GI & Abdominal Exam: Soft, Minimal Tenderness (in all four quadrants). absent: Distended, Firm, Rigid - Exam Bilateral CVA tenderness (left greater than right, but improved compared to yesterdays exam) Additional comments: mild suprapubic tenderness - Extremities Exam Extremities exam: Positive for: pedal pulses present. Normal capillary refill. - Neurological Exam Neurological exam: Alert, CN II-XII Intact, Normal Gait, Oriented x3 - Psychiatric Exam Psychiatric exam: Normal Affect, Normal Mood - Skin Skin Exam: Dry, Normal Color, Warm Assessment and Plan - Assessment and Plan (Free Text) Assessment: 38F with a PMHx of anemia, pyelonephritis, nephrolithiasis presents to the ED with a 5 day hx of intermittent dysuria/urinary frequency and a one day hx of fevers, abdominal discomfort, generalized body aches and nausea w/ vomiting x2. Found to have sepsis secondary to clinical pyelonephritis, as well as nonobstructing stones. Plan: Sepsis secondary to pyelonephritis Tmax 102.5, tachycardia resolved Bandemia of 3 with Leukocytosis of 13.6, hypotension requiring 3L IVF on admission Bands resolved, leucocytosis resolved, SBP high 90s- low 100s; DBP high 50s to low 70s. May be some component of hypotension at baseline Rocephin discontinued Merrem 1g q8 started (12/19) for pyelonephritis, as pt is high risk for MDR, due to recent admission for pyelonephritis in [facility]. Pt given Gentamicin 100 mg (12/20) as minimal clinical improvement after Rocephin and Merrem Tylenol 650 mg PO PRN fever/pain Morphine for pain BC x2 prelim negative x 48 hours UCx negative Infectious disease, Dr. Edwards, consulted. Started on Gentamycin 80 mg IVP Q8 (12/20) Nephrolithiasis Abd/Pelv CT without contrast showed 2 non obstructing stones, both less than 5 mm. No evidence of hydronephrosis or hydroureter. Mild to moderate urinary bladder wall thickening. Mildly enlarged heterogeneous uterus. Morphine 2 mg IVP q4h PRN LR at 150, Tamsulosin 0.4 mg PO daily Will continue to strain urine Abdominal pain with Nausea with Vomiting, likely due to pyelonephritis Urine HCG is negative Abdominal/pelvic CT with PO/IV contrast shows probably acute pyelonephritis lower pole left kidney. Cortical scar upper pole left kidney. No evidence of urinary tract obstruction. Minimal fluid in cul-de-sac. Suspect fluid in endometrial cavity. Zofran 4mg q4 IVP Morphine as above F/u transvaginal US Myalgias Generalized body aches, attributed to pyelonephritis Influenza rapid test neg Tamiflu 75mg BID discontinued Contact precautions discontinued Hx of Anemia H/H is stable and WNL PPx No indication for GI ppx at this time SCDs for VTE ppx HHD Case discussed with Dr. Lewis <Shawn Lewis - Last Filed: 12/21/18 14:59> Objective - Vital Signs/Intake and Output Vital Signs (last 24 hours): Temp Pulse Resp BP Pulse Ox 98.3 F 77 20 97/62 L 98 12/21/18 07:30 12/21/18 07:30 12/21/18 07:30 12/21/18 07:30 12/21/18 07:30 Intake and Output: 12/21/18 12/21/18 06:59 18:59 Intake Total 2000 Output Total 2200 Balance -200 - Medications Medications: Current Medications Acetaminophen (Tylenol 325mg Tab) 650 mg PO Q6 PRN PRN Reason: Fever >100.4 F Last Admin: 12/21/18 03:25 Dose: 650 mg Ascorbic Acid (Vitamin C 500 Mg Tab) 500 mg PO DAILY [facility] Last Admin: 12/21/18 10:45 Dose: 500 mg Lactated Ringer's (Lactated Ringer's) 1,000 mls @ 150 mls/hr IV .Q6H40M [facility] Last Admin: 12/21/18 08:28 Dose: 150 mls/hr Meropenem 1 gm/ Sodium (Chloride) 100 mls @ 100 mls/hr IVPB Q8H [facility]; Protocol Last Admin: 12/21/18 10:45 Dose: 100 mls/hr Gentamicin Sulfate/Sodium Chloride (Gentamicin 80mg/100ml Ns) 80 mg in 100 mls @ 100 mls/hr IVPB Q8H [facility] Last Admin: 12/21/18 08:27 Dose: 100 mls/hr Morphine Sulfate (Morphine) 2 mg IVP Q4 PRN PRN Reason: Pain, moderate (4-7) Last Admin: 12/20/18 18:40 Dose: 2 mg Ondansetron HCl (Zofran Inj) 4 mg IVP Q4 PRN PRN Reason: Nausea/Vomiting Saccharomyces Boulardii (Florastor) 250 mg PO BID [facility] Last Admin: 12/21/18 10:45 Dose: 250 mg Tamsulosin HCl (Flomax) 0.4 mg PO DAILY [facility] Last Admin: 12/21/18 10:45 Dose: 0.4 mg - Labs Labs: 12/21/18 07:31 12/21/18 07:31 Attending/Attestation - Attestation I have personally seen and examined this patient.: Yes I have fully participated in the care of the patient.: Yes I have reviewed all pertinent clinical information, including history, physical exam and plan: Yes Notes (Text): Patient seen and examined with the residents, agree with above. No acute distress, clinically and symptomatically improving. Continue with current Abx therapy. Culture reports negative thus far. ID for further input and possible change to PO once more clinically stable.
[2018-12-21 08:20] VITALS: RESP 20
[2018-12-21 08:23] LABS: BASO % 0.2 % (0.0-2.0); EOS % 0.5 % (0.0-4.0); HEMOGLOBIN 11.9 g/dL (11.0-16.0); LYMPH # 1.6 K/uL (1.0-4.3); MEAN CELL VOLUME 89.9 fL (81.0-99.0); MEAN CORPUSCULAR HEMOGLOBIN 29.8 pg (27.0-31.0); MEAN CORPUSCULAR HGB CONC 33.1 g/dL (33.0-37.0); MEAN PLATELET VOLUME 8.7 fL (7.2-11.7); MONO # 1.3 K/uL (0.0-0.8); MONO % 11.9 % (0.0-10.0); NEUT # 7.7 K/uL (1.8-7.0); NEUT % 72.4 % (50.0-75.0); RBC 4.02 Mil/uL (3.80-5.20); RED CELL DISTRIBUTION WIDTH 13.5 % (11.5-14.5); WHITE BLOOD COUNT 10.6 K/uL (4.8-10.8)
[2018-12-21] MEDS: Gentamicin 80 mg in 0.9% NS 80 MG/100 ML BAG IVPB SCH ×3 (08:27→22:31)
[2018-12-21 08:35] LABS: ALB/GLOB RATIO 1.2 (1.0-2.1); ALBUMIN 3.4 g/dL (3.5-5.0); ALT/SGPT 21 U/L (9-52); AST/SGOT 16 U/L (14-36); BLOOD UREA NITROGEN 4 mg/dL (7-17); CALCIUM 8.4 mg/dl (8.6-10.4); GFR NON-AFRICAN AMERICAN > 60
[2018-12-21] MEDS: Saccharomyces Boulardi 250 mg Cap PO SCH ×2 (10:45→18:09)
--- NOTE | 2018-12-21 14:23 | US ---
Date of service: 12/21/2018 HISTORY: fluid in the culdesac,/endometrial cavity, abd adia COMPARISON: CT scan of the abdomen and pelvis performed on 12/19/2018. TECHNIQUE: Transabdominal and transvaginal pelvic ultrasound was performed. FINDINGS: UTERUS: Measures 8.0 x 5.8 x 5.8 cm. Retroverted, normal in size and appearance. No fibroid or other mass lesion seen. ENDOMETRIUM: Measures 11 mm in diameter. Normal in appearance. CERVIX: No cervical abnormality identified. RIGHT OVARY: Measures 3.8 x 2.3 x 3.0 cm. No solid mass. Normal flow. There is a 2.0 x 2.0 x 2.0 cm complicated/hemorrhagic cyst. LEFT OVARY: Measures 4.0 x 2.9 x 3.1 cm. No solid mass. Normal flow. FREE FLUID: There is hyperechoic free fluid in the pelvis. OTHER FINDINGS: None. IMPRESSION: 2.0 cm presumable hemorrhagic cyst in the right ovary and presumable hemorrhagic free fluid in the pelvis which may represent leaking hemorrhagic cyst.
--- NOTE | 2018-12-21 21:51 | CP.PCM.PN ---
Subjective - Date & Time of Evaluation Date of Evaluation: 12/21/18 Time of Evaluation: 15:00 - Subjective Subjective: dictated Objective - Vital Signs/Intake and Output Vital Signs (last 24 hours): Temp Pulse Resp BP Pulse Ox 98.8 F 93 H 20 104/71 100 12/21/18 19:00 12/21/18 15:00 12/21/18 15:00 12/21/18 15:00 12/21/18 15:00 Intake and Output: 12/21/18 12/22/18 18:59 06:59 Intake Total 1600 Output Total 2100 Balance -500 - Medications Medications: Current Medications Acetaminophen (Tylenol 325mg Tab) 650 mg PO Q6 PRN PRN Reason: Fever >100.4 F Last Admin: 12/21/18 18:00 Dose: 650 mg Ascorbic Acid (Vitamin C 500 Mg Tab) 500 mg PO DAILY [facility] Last Admin: 12/21/18 10:45 Dose: 500 mg Lactated Ringer's (Lactated Ringer's) 1,000 mls @ 150 mls/hr IV .Q6H40M [facility] Last Admin: 12/21/18 08:28 Dose: 150 mls/hr Meropenem 1 gm/ Sodium (Chloride) 100 mls @ 100 mls/hr IVPB Q8H [facility]; Protocol Last Admin: 12/21/18 10:45 Dose: 100 mls/hr Gentamicin Sulfate/Sodium Chloride (Gentamicin 80mg/100ml Ns) 80 mg in 100 mls @ 100 mls/hr IVPB Q8H [facility] Last Admin: 12/21/18 15:28 Dose: 100 mls/hr Morphine Sulfate (Morphine) 2 mg IVP Q4 PRN PRN Reason: Pain, moderate (4-7) Last Admin: 12/20/18 18:40 Dose: 2 mg Ondansetron HCl (Zofran Inj) 4 mg IVP Q4 PRN PRN Reason: Nausea/Vomiting Saccharomyces Boulardii (Florastor) 250 mg PO BID [facility] Last Admin: 12/21/18 18:09 Dose: 250 mg Tamsulosin HCl (Flomax) 0.4 mg PO DAILY [facility] Last Admin: 12/21/18 10:45 Dose: 0.4 mg - Labs Labs: 12/21/18 07:31 12/21/18 07:31
--- NOTE | 2018-12-22 00:01 | CARD ---
APPROVED REPORT Date of service: 12/19/2018 EKG Measurement Heart [id number] <Conclusion> Normal sinus rhythm Normal ECG
[2018-12-22] MEDS: Lactated Ringer's 1,000 ML IV SCH ×2 (01:13→12:12)
--- NOTE | 2018-12-22 01:13 | PN ---
DATE: 12/21/2018 INFECTIOUS DISEASE FOLLOWUP SUBJECTIVE: The patient remains afebrile. She said she has very less suprapubic pain. She did have cystitis. Head is atraumatic, normocephalic. She has been afebrile now. PHYSICAL EXAMINATION: VITAL SIGNS: T-max is 98.9. When I saw, pulse 93, blood pressure 104/71, respirations are 20. HEAD: Atraumatic, normocephalic. NECK: Supple. LUNGS: Clear. No crackles or rales present. HEART: S1 and S2 are regular. ABDOMEN: Shows suprapubic tenderness. EXTREMITIES: Have no edema. LABORATORY DATA: Labs are noted. Labs show white count is 10.6, hemoglobin 11.9, hematocrit 36.1, platelet count is 239, lymphs are 15, monos are 11.9, neutrophils are 7.7, are 1.3. BUN is 4, creatinine 0.5, and potassium is 3.6. Micro coughlin, blood culture x2. Urine culture is negative. ASSESSMENT AND PLAN: However, she does have pyelonephritis. She seems to be doing significantly better. Since cultures have been negative, we will discontinue gentamicin tomorrow and keep her on meropenem. If she remains afebrile, we can try next Cipro intravenously. If that remains okay, then she can probably go on Cipro by mouth, but I am not sure because she has had previous urinary tract infections if she would be stable on Cipro. Otherwise, I would continue meropenem for now. Impression is pyelonephritis in a patient who has cystitis and pyelonephritis both and may be ileitis. Jorgito Edwards MD
[2018-12-22] MEDS: Meropenem 1 GM in Sodium Chloride 0.9% 100 ML IVPB SCH ×3 (04:21→18:30)
--- NOTE | 2018-12-22 07:36 | CP.PCM.PN ---
<Adarsh Lindsay - Last Filed: 12/22/18 17:03> Subjective - Date & Time of Evaluation Date of Evaluation: 12/22/18 Time of Evaluation: 08:00 - Subjective Subjective: PGY1 Medicine progress note for Dr. Marietta Good Pt was seen and evaluated at bedside. She states that she feels much better. She has no complaints at this time. She denies vision changes, dizziness, lightheadedness, headache, chest pain, palpitations, SOB, abdominal pain, diarrhea, body aches, numbness, paresthesias, dyrusia, back pain, ear pain, difficulty hearing. Objective - Vital Signs/Intake and Output Vital Signs (last 24 hours): Temp Pulse Resp BP Pulse Ox 98.1 F 75 20 100/65 98 12/21/18 23:25 12/21/18 23:25 12/21/18 23:25 12/21/18 23:25 12/21/18 23:25 - Medications Medications: Current Medications Acetaminophen (Tylenol 325mg Tab) 650 mg PO Q6 PRN PRN Reason: Fever >100.4 F Last Admin: 12/22/18 01:59 Dose: 650 mg Ascorbic Acid (Vitamin C 500 Mg Tab) 500 mg PO DAILY [facility] Last Admin: 12/21/18 10:45 Dose: 500 mg Meropenem 1 gm/ Sodium (Chloride) 100 mls @ 100 mls/hr IVPB Q8H [facility]; Protocol Last Admin: 12/22/18 04:21 Dose: 100 mls/hr Gentamicin Sulfate/Sodium Chloride (Gentamicin 80mg/100ml Ns) 80 mg in 100 mls @ 100 mls/hr IVPB Q8H [facility] Last Admin: 12/21/18 22:31 Dose: 100 mls/hr Morphine Sulfate (Morphine) 2 mg IVP Q4 PRN PRN Reason: Pain, moderate (4-7) Last Admin: 12/20/18 18:40 Dose: 2 mg Ondansetron HCl (Zofran Inj) 4 mg IVP Q4 PRN PRN Reason: Nausea/Vomiting Saccharomyces Boulardii (Florastor) 250 mg PO BID [facility] Last Admin: 12/21/18 18:09 Dose: 250 mg Tamsulosin HCl (Flomax) 0.4 mg PO DAILY [facility] Last Admin: 02/19/19 10:45 Dose: 0.4 mg - Labs Labs: 12/21/18 07:31 12/21/18 07:31 - Additional Findings Additional findings: - Constitutional Appears: Non-toxic, No Acute Distress. Smiling - Head Exam Head Exam: ATRAUMATIC, NORMAL INSPECTION - Eye Exam Eye Exam: EOMI, Normal appearance - ENT Exam ENT Exam: Mucous Membranes Moist - Neck Exam Neck exam: Normal Inspection. Negative for: Lymphadenopathy - Respiratory Exam Respiratory Exam: Clear to Auscultation Bilateral, NORMAL BREATHING PATTERN. absent: Rales, Wheezes - Cardiovascular Exam Cardiovascular Exam: RRR, +S1, +S2 - GI/Abdominal Exam GI & Abdominal Exam: Soft, Minimal Tenderness (in LLQ, LUQ). absent: Distended, Firm, Rigid Additional comments: mild suprapubic tenderness - Back Exam Left sided CVA tenderness - Extremities Exam Extremities exam: Positive for: pedal pulses present. Normal capillary refill. - Neurological Exam Neurological exam: Alert, Normal Gait, Oriented x3 - Psychiatric Exam Psychiatric exam: Normal Affect, Normal Mood - Skin Skin Exam: Dry, Normal Color, Warm Assessment and Plan - Assessment and Plan (Free Text) Assessment: This is 38F with a PMHx of anemia, pyelonephritis, nephrolithiasis presents to the ED with a 5 day hx of intermittent dysuria/urinary frequency and a one day hx of fevers, abdominal discomfort, generalized body aches and nausea w/ vomiting x2. Found to have sepsis secondary to clinical pyelonephritis, as well as nonobstructing stones. Plan: Sepsis secondary to pyelonephritis; clinically improving Abdominal/pelvic CT with PO/IV contrast shows probably acute pyelonephritis lower pole left kidney. Tmax 102.5 Pt is no longer tachycardia, afebrile Bandemia of 3 with Leukocytosis of 13.6, hypotension requiring 3L IVF on admission Bands resolved, leucocytosis resolved, SBP high 90s- low 100s; DBP high 60s to low 70s. May be some component of hypotension at baseline Rocephin discontinued Merrem 1g q8 started (12/19) for pyelonephritis, as pt is high risk for MDR, due to recent admission for pyelonephritis in [facility]. Pt given Gentamicin 100 mg (12/20) as minimal clinical improvement after Rocephin and Merrem Tylenol 650 mg PO PRN fever/pain Morphine for pain BC x2 prelim negative x 3 days UCx negative Infectious disease, Dr. Edwards, consulted. Started on Gentamycin 80 mg IVP Q8 (12/20). Gentamicin discontinued 12/22. No complaints of hearing loss, tinnitus or changes in hearing. Nephrolithiasis Abd/Pelv CT without contrast showed 2 non obstructing stones, both less than 5 mm. No evidence of hydronephrosis or hydroureter. Mild to moderate urinary mala dder wall thickening. Mildly enlarged heterogeneous uterus. Morphine 2 mg IVP q4h PRN LR at 150, Tamsulosin 0.4 mg PO daily Will continue to strain urine Abdominal pain with Nausea with Vomiting, likely due to pyelonephritis Urine HCG is negative Abdominal/pelvic CT with PO/IV contrast shows probably acute pyelonephritis lower pole left kidney. Cortical scar upper pole left kidney. No evidence of urinary tract obstruction. Minimal fluid in cul-de-sac. Suspect fluid in e ndometrial cavity. Zofran 4mg q4 IVP Morphine as above Transvaginal US shows 2.0 cm presumably hemorrhagic cyst of right ovary and free fluid. May be a leaking hemorrhagic cyst. Pt should follow up with OBGYN after discharge. Myalgias Generalized body aches, attributed to pyelonephritis Influenza rapid test neg Tamiflu 75mg BID discontinued Contact precautions discontinued Hx of Anemia H/H is stable and WNL PPx No indication for GI ppx at this time SCDs for VTE ppx HHD Case discussed with Dr. Marietta Good <Felix Good - Last Filed: 12/22/18 19:02> Objective - Vital Signs/Intake and Output Vital Signs (last 24 hours): Temp Pulse Resp BP Pulse Ox 98.3 F 80 20 103/74 100 12/22/18 15:00 12/22/18 15:00 12/22/18 15:00 12/22/18 15:00 12/22/18 15:00 Intake and Output: 12/22/18 12/22/18 06:59 18:59 Intake Total 1580 Output Total 975 Balance 605 - Medications Medications: Current Medications Acetaminophen (Tylenol 325mg Tab) 650 mg PO Q6 PRN PRN Reason: Fever >100.4 F Last Admin: 12/22/18 08:30 Dose: 650 mg Ascorbic Acid (Vitamin C 500 Mg Tab) 500 mg PO DAILY [facility] Last Admin: 12/22/18 10:07 Dose: 500 mg Meropenem 1 gm/ Sodium (Chloride) 100 mls @ 100 mls/hr IVPB Q8H [facility]; Protocol Last Admin: 12/22/18 18:30 Dose: 100 mls/hr Morphine Sulfate (Morphine) 2 mg IVP Q4 PRN PRN Reason: Pain, moderate (4-7) Last Admin: 12/20/18 18:40 Dose: 2 mg Ondansetron HCl (Zofran Inj) 4 mg IVP Q4 PRN PRN Reason: Nausea/Vomiting Saccharomyces Boulardii (Florastor) 250 mg PO BID [facility] Last Admin: 12/22/18 17:11 Dose: 250 mg Tamsulosin HCl (Flomax) 0.4 mg PO DAILY [facility] Last Admin: 12/22/18 10:07 Dose: 0.4 mg - Labs Labs: 12/22/18 07:16 12/22/18 07:16 Attending/Attestation - Attestation I have personally seen and examined this patient.: Yes I have fully participated in the care of the patient.: Yes I have reviewed all pertinent clinical information, including history, physical exam and plan: Yes Notes (Text): 12/22/18 18:57 Patient was seen and examined at 11:45 AM Care of this patient was gone over in detail with resident Dr. Lindsay NO complaints upon FULL ROS Also on Exam: Left CVA tenderness upon percussion but patient states that it is not as sharp as earlier during admission Plan is to discharge on 12/23/18 as long as fever free for 48 hours. Will switch antibiotic over to either Keflex of Vantin to complete a total of 14 days from time of admission: will confirm with ID Dr. Edwards Explained to patient the results of CT Abdomen/Pelvis as well as U/S Pelvis. Explained the need for further outpatient [employer] CLASS[employer] AIDE Exam which she had last over 1 year ago in [facility]. She does not have a COTTON CLASSER AIDE here and it was explained that she will be provided with the information for [facility] in [place] [phone] upon discharge for COTTON CLASS[employer] AIDE exam Felix Good D.O.
[2018-12-22 07:43] LABS: BASO % 0.3 % (0.0-2.0); EOS # 0.2 K/uL (0.0-0.7); EOS % 1.9 % (0.0-4.0); HEMOGLOBIN 12.2 g/dL (11.0-16.0); LYMPH # 1.5 K/uL (1.0-4.3); LYMPH % 18.5 % (20.0-40.0); MEAN CELL VOLUME 89.1 fL (81.0-99.0); MEAN CORPUSCULAR HEMOGLOBIN 30.1 pg (27.0-31.0); MEAN CORPUSCULAR HGB CONC 33.8 g/dL (33.0-37.0); MEAN PLATELET VOLUME 8.5 fL (7.2-11.7); MONO # 0.9 K/uL (0.0-0.8); NEUT # 5.5 K/uL (1.8-7.0); NEUT % 68.3 % (50.0-75.0); RBC 4.06 Mil/uL (3.80-5.20); RED CELL DISTRIBUTION WIDTH 13.6 % (11.5-14.5); WHITE BLOOD COUNT 8.1 K/uL (4.8-10.8)
[2018-12-22 07:59] LABS: ALB/GLOB RATIO 1.3 (1.0-2.1); ALBUMIN 3.8 g/dL (3.5-5.0); ALT/SGPT 20 U/L (9-52); AST/SGOT 18 U/L (14-36); BLOOD UREA NITROGEN 5 mg/dL (7-17); CALCIUM 8.8 mg/dl (8.6-10.4); GFR NON-AFRICAN AMERICAN > 60
[2018-12-22] MEDS: Gentamicin 80 mg in 0.9% NS 80 MG/100 ML BAG IVPB SCH (08:25)
[2018-12-22] MEDS: Saccharomyces Boulardi 250 mg Cap PO SCH ×2 (10:07→17:11)
[2018-12-23] MEDS: Meropenem 1 GM in Sodium Chloride 0.9% 100 ML IVPB SCH ×2 (04:30→11:34)
[2018-12-23 07:43] LABS: BASO % 0.3 % (0.0-2.0); EOS # 0.2 K/uL (0.0-0.7); EOS % 3.3 % (0.0-4.0); HEMOGLOBIN 11.9 g/dL (11.0-16.0); LYMPH # 1.5 K/uL (1.0-4.3); LYMPH % 21.4 % (20.0-40.0); MEAN CELL VOLUME 89.3 fL (81.0-99.0); MEAN CORPUSCULAR HEMOGLOBIN 29.9 pg (27.0-31.0); MEAN CORPUSCULAR HGB CONC 33.5 g/dL (33.0-37.0); MEAN PLATELET VOLUME 8.1 fL (7.2-11.7); MONO # 0.8 K/uL (0.0-0.8); MONO % 11.3 % (0.0-10.0); NEUT # 4.5 K/uL (1.8-7.0); NEUT % 63.7 % (50.0-75.0); RBC 3.98 Mil/uL (3.80-5.20); WHITE BLOOD COUNT 7.1 K/uL (4.8-10.8)
[2018-12-23 07:59] VITALS: BP 91/58; PULSE 73; TEMP 98; O2SAT 98
[2018-12-23 07:59] LABS: ALB/GLOB RATIO 1.3 (1.0-2.1); ALBUMIN 3.7 g/dL (3.5-5.0); ALT/SGPT 14 U/L (9-52); AST/SGOT 18 U/L (14-36); BLOOD UREA NITROGEN 7 mg/dL (7-17); CALCIUM 8.8 mg/dl (8.6-10.4); GFR NON-AFRICAN AMERICAN > 60
--- NOTE | 2018-12-23 09:14 | CP.PCM.DIS ---
<Adarsh Lindsay - Last Filed: 12/23/18 13:53> Provider - Provider Date of Admission: 12/22/18 14:02 Attending physician: Bang Riley MD Consults: 12/20/18 12:11 Infectious Disease Consult Routine Comment: Consulting Provider: Jorgito Edwards Consulting Physician: Jorgito Edwards Reason for Consult: pyelonephritis, spiking fevers Time Spent in preparation of Discharge (in minutes): 35 Diagnosis - Discharge Diagnosis (1) Pyelonephritis Status: Acute (2) Nephrolithiasis Status: Acute (3) Ovarian cyst Status: Acute Hospital Course - Lab Results Lab Results: Micro Results 12/18/18 23:51 Blood Blood Culture - Preliminary NO GROWTH AFTER 4 DAYS 12/19/18 00:51 Blood Blood Culture - Preliminary NO GROWTH AFTER 4 DAYS 12/19/18 01:44 Urine,Clean Catch Urine Culture - Final No Growth (<1,000 CFU/ML) Most Recent Lab Values WBC 7.1 K/uL (4.8-10.8) 12/23/18 07:27 RBC 3.98 Mil/uL (3.80-5.20) 12/23/18 07:27 Hgb 11.9 g/dL (11.0-16.0) 12/23/18 07:27 Hct 35.5 % (34.0-47.0) 12/23/18 07:27 MCV 89.3 fL (81.0-99.0) 12/23/18 07:27 MCH 29.9 pg (27.0-31.0) 12/23/18 07:27 MCHC 33.5 g/dL (33.0-37.0) 12/23/18 07:27 RDW 14.0 % (11.5-14.5) 12/23/18 07:27 Plt Count 294 K/uL (130-400) 12/23/18 07:27 MPV 8.1 fL (7.2-11.7) 12/23/18 07:27 Neut % (Auto) 63.7 % (50.0-75.0) 12/23/18 07:27 Lymph % (Auto) 21.4 % (20.0-40.0) 12/23/18 07:27 [place] % (Auto) 11.3 % (0.0-10.0) H 12/23/18 07:27 Eos % (Auto) 3.3 % (0.0-4.0) 12/23/18 07: Baso % (Auto) 0.3 % (0.0-2.0) 12/23/18 07:27 Neut # (Auto) 4.5 K/uL (1.8-7.0) 12/23/18 07: Lymph # (Auto) 1.5 K/uL (1.0-4.3) 12/23/18 07: [place] # (Auto) 0.8 K/uL (0.0-0.8) 12/23/18 07: Eos # (Auto) 0.2 K/uL (0.0-0.7) 12/23/18 07: Baso # (Auto) 0.0 K/uL (0.0-0.2) 12/23/18 07:27 Neutrophils % (Manual) 82 % (50-75) H 12/20/18 11:29 Band Neutrophils % 1 % (0-2) 12/20/18 11:29 Lymphocytes % (Manual) 10 % (20-40) L 12/20/18 11:29 Monocytes % (Manual) 7 % (0-10) 12/20/18 11:29 Platelet Estimate Normal (NORMAL) 12/20/18 11:29 Hypochromasia (manual) Slight 12/20/18 11:29 Poikilocytosis (manual Slight 12/20/18 11:29 Anisocytosis (manual) Slight 12/20/18 11:29 pO2 32 mm/Hg (30-55) 12/19/18 00:28 VBG pH 7.44 (7.32-7.43) H 12/19/18 00:28 VBG pCO2 38 mmHg (40-60) L 12/19/18 00:28 VBG HCO3 25.4 mmol/L 12/19/18 00:28 VBG Total CO2 27.0 mmol/L (22-28) 12/19/18 00:28 VBG O2 Sat (Calc) 68.7 % (40-65) H 12/19/18 00:28 VBG Base Excess 1.7 mmol/L (0.0-2.0) 12/19/18 00:28 VBG Potassium 3.5 mmol/L (3.6-5.2) L 12/19/18 00:28 Sodium 135.0 mmol/l (132-148) 12/19/18 00:28 Chloride 102.0 mmol/L (98-107) 12/19/18 00:28 Glucose 112 mg/dl (65-105) H 12/19/18 00:28 Lactate 1.0 mmol/L (0.7-2.1) 12/19/18 00:28 Sodium 135 mmol/L (132-148) 12/23/18 07:27 Potassium 3.7 mmol/L (3.6-5.2) 12/23/18 07:27 Chloride 100 mmol/L (98-107) 12/23/18 07:27 Carbon Dioxide 27 mmol/L (22-30) 12/23/18 07:27 Anion Gap 13 (10-20) 12/23/18 07:27 BUN 7 mg/dL (7-17) 12/23/18 07:27 Creatinine 0.6 mg/dL (0.7-1.2) L 12/23/18 07:27 Est GFR ( Amer) > 60 12/23/18 07:27 Est GFR (Non-Af Amer) > 60 12/23/18 07:27 POC Glucose (mg/dL) 90 mg/dL (65-110) 12/23/18 06:56 Random Glucose 91 mg/dL (65-105) 12/23/18 07:27 Calcium 8.8 mg/dl (8.6-10.4) 12/23/18 07:27 Total Bilirubin 0.3 mg/dL (0.2-1.3) 12/23/18 07:27 AST 18 U/L (14-36) 12/23/18 07:27 ALT 14 U/L (9-52) 12/23/18 07:27 Alkaline Phosphatase 74 U/L (38-126) 12/23/18 07:27 Total Protein 6.7 g/dL (6.3-8.3) 12/23/18 07:27 Albumin 3.7 g/dL (3.5-5.0) 12/23/18 07:27 Globulin 3.0 gm/dL (2.2-3.9) 12/23/18 07:27 Albumin/Globulin Ratio 1.3 (1.0-2.1) 12/23/18 07:27 Amylase 102 U/L (30-110) 12/19/18 00:21 Lipase 81 U/L (23-300) 12/19/18 00:21 Procalcitonin 4.40 NG/ML (0.19-0.49) H 12/19/18 12:00 Venous Blood Potassium 3.5 mmol/L (3.6-5.2) L 12/19/18 00:28 Urine Color Straw (YELLOW) 12/19/18 01:17 Urine Clarity Clear (Clear) 12/19/18 01:17 Urine pH 6.0 (5.0-8.0) 12/19/18 01:17 Ur Specific [place] 1.003 (1.003-1.030) 12/19/18 01:17 Urine Protein Negative mg/dL (NEGATIVE) 12/19/18 01:17 Urine Glucose (UA) Normal mg/dL (Normal) 12/19/18 01:17 Urine Ketones Negative mg/dL (NEGATIVE) 12/19/18 01:17 Urine Blood Negative (NEGATIVE) 12/19/18 01:17 Urine Nitrate Negative (NEGATIVE) 12/19/18 01:17 Urine Bilirubin Negative (NEGATIVE) 12/19/18 01:17 Urine Urobilinogen Normal mg/dL (0.2-1.0) 12/19/18 01:17 Ur Leukocyte Esterase 2+ Nikita/uL (Negative) H 12/19/18 01:17 Urine WBC (Auto) 32 /hpf (0-5) H 12/19/18 01:17 Urine RBC (Auto) < 1 /hpf (0-3) 12/19/18 01:17 Ur Squamous Epith Cells 2 /hpf (0-5) 12/19/18 01:17 Urine Bacteria Rare (<OCC) 12/19/18 01:17 Urine HCG, Qual Negative (NEGATIVE) 12/19/18 01:17 Influenza Typ A,B (EIA) Negative for flu a/b (NEGATIVE) 12/18/18 23:24 - Hospital Course Hospital Course: On admission: 38F with a PMHx of anemia presents to the ED with a 5 day hx of intermittent dysuria/urinary frequency and a one day hx of fevers, abdominal discomfort, generalized body aches and nausea w/ vomiting x2. Pt says todays symptoms of fevers and myalgias began very quickly. Pt reports taking tylenol 500mg which helped with the fevers and aches but after a short time began to feel worse. States she vomited her food and felt very nauseas. Pt also reports a headache and feeling weak since the onset of todays symptoms. She denies any change in urine color, change in stools, night sweats, recent weight loss, sore throat, dysphagia. Pt denies any sick contacts at home. Hospital course: UA showed UTI. Leykocytosis of 13.6, bandemia of 3. Pt was given 3L of fluid due to hypotension, but during stay it was determined that pt may have some component baseline low BP as she has been asymptomatic with SBP in 100s. Abd/Pelv CT without contrast showed 2 non obstructing stones, both less than 5 mm. No evidence of hydronephrosis or hydroureter. Mild to moderate urinary bladder wall thickening. Mildly enlarged heterogeneous uterus. Pt started on flomax and IVF for the stones. Tmax 102.5, pt with chills as well and substantial CVA tenderness. Pt was started on Merrem IV for clinical pyelonephritis as pt had high risk for MDR, on which pt did not improve. Infectious disease consulted. Gentamicin was added by Infectious disease, with clinical improvement. Blood cultures and urine culture were negative. Abd ominal/pelvic CT with PO/IV contrast shows probably acute pyelonephritis lower pole left kidney. Cortical scar upper pole left kidney. No evidence of urinary tract obstruction. Minimal fluid in cul-de-sac. Suspect fluid in endometrial cavity. Transvaginal US shows 2.0 cm presumably hemorrhagic cyst of right ovary and free fluid. May be a leaking hemorrhagic cyst. Pt instructed to follow up with OBGYN on discharge. She will be discharged on Vantin 200 mg PO BID for 10 days. This is a summary of hospital course. Please see EMR for full details. Discharge Exam - Head Exam Head Exam: ATRAUMATIC, NORMAL INSPECTION - Eye Exam Eye Exam: EOMI, Normal appearance - ENT Exam ENT Exam: Mucous Membranes Moist - Respiratory Exam Respiratory Exam: NORMAL BREATHING PATTERN. absent: Rales, Rhonchi, Wheezes, Respiratory Distress - Cardiovascular Exam Cardiovascular Exam: REGULAR RHYTHM, +S1, +S2. absent: Tachycardia - GI/Abdominal Exam GI & Abdominal Exam: Normal Bowel Sounds, Soft. absent: Tenderness - Back Exam Back exam: CVA tenderness (L) (minimal). absent: CVA tenderness (R) - Neurological Exam Neurological exam: Alert, Oriented x3 - Psychiatric Exam Psychiatric exam: Normal Affect, Normal Mood - Skin Skin Exam: Dry, Normal Color, Warm Discharge Plan - Discharge Medications Prescriptions: Aspirin [Aspirin Chewable] 81 mg PO DAILY #14 ctb Cefpodoxime [Vantin] 200 mg PO BID #20 tab Lactobacillus Acidophilus [Lactobacillus] 1 cap PO BID #80 cap - Follow Up Plan Condition: FAIR Disposition: HOME/ ROUTINE Instructions: Aspirin, Cefpodoxime, Lactobacillus, Urinary Tract Infection in Women (DC) Additional Instructions: The following instructions were explained to patient and and a copy of these instructions should be provided to her upon discharge: 1). Schedule appointment with [facility] located at [address] [place] [address] in [place], [place] by calling [phone] for an appointment to take place in the next 7 to 10 days. This will be your primary care facility to help you coordinate your health care. 2). Through the [facility], obtain KEY ATTENDANT exam and referral for further evaluation of enlarged Uterus and Hemorrhagic Ovarian Cyst and for Urology referral for your history of kidney stones. 3). Please have the following medications filled at your pharmacy on your way home from the hospital and use them as instructed: Vantin 200 mg, 1 tablet by mouth 2x/day (8 AM and 8 PM) until finished, Dispense #20 Lactobacillus, 1 capsulre by mouth 2x/day (10 AM and 6 PM) until finished, Dispense #80 Aspirin 81 mg, 1 tablet by mouth 1x/day (8 AM) until finished, Dispense #14 4). Apply warm towel to your left upper front arm for 30 minutes every 6 hours until the inflammation in this arm has resolved. 5). Stay well hydrated with water throughout the day. You must drink at least 3 liters a day. 6). Please do not delay in following the above instructions. Failure to do so will have serious consequences to your health. 7). Take care and be well. Felix Good D.O. <Felix Good - Last Filed: 12/23/18 17:55> Provider - Provider Date of Admission: 12/22/18 14:02 Attending physician: Bang Riley MD Consults: 12/20/18 12:11 Infectious Disease Consult Routine Comment: Consulting Provider: Jorgito Edwards Consulting Physician: Jorgito Edwards Reason for Consult: pyelonephritis, spiking fevers Hospital Course - Lab Results Lab Results: Micro Results 12/18/18 23:51 Blood Blood Culture - Preliminary NO GROWTH AFTER 4 DAYS 12/19/18 00:51 Blood Blood Culture - Preliminary NO GROWTH AFTER 4 DAYS 12/19/18 01:44 Urine,Clean Catch Urine Culture - Final No Growth (<1,000 CFU/ML) Most Recent Lab Values WBC 7.1 K/uL (4.8-10.8) 12/23/18 07:27 RBC 3.98 Mil/uL (3.80-5.20) 12/23/18 07:27 Hgb 11.9 g/dL (11.0-16.0) 12/23/18 07:27 Hct 35.5 % (34.0-47.0) 12/23/18 07:27 MCV 89.3 fL (81.0-99.0) 12/23/18 07:27 MCH 29.9 pg (27.0-31.0) 12/23/18 07:27 MCHC 33.5 g/dL (33.0-37.0) 12/23/18 07:27 RDW 14.0 % (11.5-14.5) 12/23/18 07:27 Plt Count 294 K/uL (130-400) 12/23/18 07:27 MPV 8.1 fL (7.2-11.7) 12/23/18 07:27 Neut % (Auto) 63.7 % (50.0-75.0) 12/23/18 07:27 Lymph % (Auto) 21.4 % (20.0-40.0) 12/23/18 07:27 [place] % (Auto) 11.3 % (0.0-10.0) H 12/23/18 07:27 Eos % (Auto) 3.3 % (0.0-4.0) 12/23/18 07:27 Baso % (Auto) 0.3 % (0.0-2.0) 12/23/18 07:27 Neut # (Auto) 4.5 K/uL (1.8-7.0) 12/23/18 07:27 Lymph # (Auto) 1.5 K/uL (1.0-4.3) 12/23/18 07:27 [place] # (Auto) 0.8 K/uL (0.0-0.8) 12/23/18 07:27 Eos # (Auto) 0.2 K/uL (0.0-0.7) 12/23/18 07:27 Baso # (Auto) 0.0 K/uL (0.0-0.2) 12/23/18 07:27 Neutrophils % (Manual) 82 % (50-75) H 12/20/18 11:29 Band Neutrophils % 1 % (0-2) 12/20/18 11:29 Lymphocytes % (Manual) 10 % (20-40) L 12/20/18 11:29 Monocytes % (Manual) 7 % (0-10) 12/20/18 11:29 Platelet Estimate Normal (NORMAL) 12/20/18 11:29 Hypochromasia (manual) Slight 12/20/18 11:29 Poikilocytosis (manual Slight 12/20/18 11:29 Anisocytosis (manual) Slight 12/20/18 11:29 pO2 32 mm/Hg (30-55) 12/19/18 00:28 VBG pH 7.44 (7.32-7.43) H 12/19/18 00:28 VBG pCO2 38 mmHg (40-60) L 12/19/18 00:28 VBG HCO3 25.4 mmol/L 12/19/18 00:28 VBG Total CO2 27.0 mmol/L (22-28) 12/19/18 00:28 VBG O2 Sat (Calc) 68.7 % (40-65) H 12/19/18 00:28 VBG Base Excess 1.7 mmol/L (0.0-2.0) 12/19/18 00:28 VBG Potassium 3.5 mmol/L (3.6-5.2) L 12/19/18 00:28 Sodium 135.0 mmol/l (132-148) 12/19/18 00:28 Chloride 102.0 mmol/L (98-107) 12/19/18 00:28 Glucose 112 mg/dl (65-105) H 12/19/18 00:28 Lactate 1.0 mmol/L (0.7-2.1) 12/19/18 00:28 Sodium 135 mmol/L (132-148) 12/23/18 07:27 Potassium 3.7 mmol/L (3.6-5.2) 12/23/18 07:27 Chloride 100 mmol/L (98-107) 12/23/18 07:27 Carbon Dioxide 27 mmol/L (22-30) 12/23/18 07:27 Anion Gap 13 (10-20) 12/23/18 07:27 BUN 7 mg/dL (7-17) 12/23/18 07:27 Creatinine 0.6 mg/dL (0.7-1.2) L 12/23/18 07:27 Est GFR ( Amer) > 60 12/23/18 07:27 Est GFR (Non-Af Amer) > 60 12/23/18 07:27 POC Glucose (mg/dL) 116 mg/dL (65-110) H 12/23/18 10:47 Random Glucose 91 mg/dL (65-105) 12/23/18 07:27 Calcium 8.8 mg/dl (8.6-10.4) 12/23/18 07:27 Total Bilirubin 0.3 mg/dL (0.2-1.3) 12/23/18 07:27 AST 18 U/L (14-36) 12/23/18 07:27 ALT 14 U/L (9-52) 12/23/18 07:27 Alkaline Phosphatase 74 U/L (38-126) 12/23/18 07:27 Total Protein 6.7 g/dL (6.3-8.3) 12/23/18 07:27 Albumin 3.7 g/dL (3.5-5.0) 12/23/18 07:27 Globulin 3.0 gm/dL (2.2-3.9) 12/23/18 07:27 Albumin/Globulin Ratio 1.3 (1.0-2.1) 12/23/18 07:27 Amylase 102 U/L (30-110) 12/19/18 00:21 Lipase 81 U/L (23-300) 12/19/18 00:21 Procalcitonin 4.40 NG/ML (0.19-0.49) H 12/19/18 12:00 Venous Blood Potassium 3.5 mmol/L (3.6-5.2) L 12/19/18 00:28 Urine Color Straw (YELLOW) 12/19/18 01:17 Urine Clarity Clear (Clear) 12/19/18 01:17 Urine pH 6.0 (5.0-8.0) 12/19/18 01:17 Ur Specific [place] 1.003 (1.003-1.030) 12/19/18 01:17 Urine Protein Negative mg/dL (NEGATIVE) 12/19/18 01:17 Urine Glucose (UA) Normal mg/dL (Normal) 12/19/18 01:17 Urine Ketones Negative mg/dL (NEGATIVE) 12/19/18 01:17 Urine Blood Negative (NEGATIVE) 12/19/18 01:17 Urine Nitrate Negative (NEGATIVE) 12/19/18 01:17 Urine Bilirubin Negative (NEGATIVE) 12/19/18 01:17 Urine Urobilinogen Normal mg/dL (0.2-1.0) 12/19/18 01:17 Ur Leukocyte Esterase 2+ Nikita/uL (Negative) H 12/19/18 01:17 Urine WBC (Auto) 32 /hpf (0-5) H 12/19/18 01:17 Urine RBC (Auto) < 1 /hpf (0-3) 12/19/18 01:17 Ur Squamous Epith Cells 2 /hpf (0-5) 12/19/18 01:17 Urine Bacteria Rare (<OCC) 12/19/18 01:17 Urine HCG, Qual Negative (NEGATIVE) 12/19/18 01:17 Influenza Typ A,B (EIA) Negative for flu a/b (NEGATIVE) 12/18/18 23:24 Attending/Attestation - Attestation I have personally seen and examined this patient.: Yes I have fully participated in the care of the patient.: Yes I have reviewed all pertinent clinical information, including history, physical exam and plan: Yes Notes (Text): 12/23/18 17:51 Patient was seen and examined 20 minutes before discharge order was placed. Care of this patient and discharge instructions were gone over in detail with resident Dr. Dami Winkler Discharge instructions were gone over in detail with the patient and . I was contacted later by the pharmacists at [email or web address] who stated that the sherman for the Vantin was too high at $107. I had the pharmacist explain to the patient and her that this was the drug that was needed considering the recent treatment for Pyelonephritis in [facility] and another subsequent infection. Please note that this was all explained to patient and her at the time of my exam when going over discharge instructions and I explained that the Vantin will likely be expensive at roughly $100 and at that time they also had expressed understanding. The pharmacist informed that they understood and would be purchasing the Vantin. Felix Good D.O.
[2018-12-23] MEDS: Saccharomyces Boulardi 250 mg Cap PO SCH (10:13)
--- NOTE | 2018-12-24 10:00 | VASCLAB ---
Date of service: 12/23/2018 PROCEDURE: Left Upper Extremity Venous Duplex Exam HISTORY: Leg swelling r/o thrombus PRIORS: None. TECHNIQUE: Left upper extremity, internal jugular, subclavian, axillary, brachial, ulnar, radial, basilic and upper cephalic veins were evaluated. Flow was assessed with color Doppler, compressibility, assessment of phasic flow and augmentation response. Report prepared by Govind Evans, [facility], RVT FINDINGS: LEFT: 1. Internal Jugular: 1.1. Compressibility - Fully compressible: Thrombus - None : Flow - Phasic: Augmentation -Normal: Reflux - None. 2. Subclavian: 2.1. Compressibility - Fully compressible: Thrombus - None : Flow - Phasic: Augmentation -Normal: Reflux - None. 3. Axillary: 3.1. Compressibility - Fully compressible: Thrombus - None : Flow - Phasic: Augmentation -Normal: Reflux - None. 4. Brachial: 4.1. Compressibility - Fully compressible: Thrombus - None: Flow - Phasic: Augmentation -Normal: Reflux - None. 5. Ulnar: 5.1. Compressibility - Fully compressible: Thrombus - None: Flow - Phasic: Augmentation -Normal: Reflux - None. 6. Radial: 6.1. Compressibility - Fully compressible: Thrombus - None: Flow - Phasic: Augmentation - Normal: Reflux - None. 7. Cephalic: 7.1. Compressibility - Incompressible: Thrombus - Acute: Flow - Reduced 8. Basilic: 8.1. Compressibility - Fully compressible: Thrombus - None: Flow - Phasic: Augmentation -Normal: Reflux - None. OTHER FINDINGS: Normal venous flow noted in the RIGHT internal jugular and right subclavian veins. IMPRESSION: Left: Superficial phlebitis of the left cephalic vein, from distal upper arm to proximal forearm. No evidence of DEEP vein thrombosis of the left upper extremity. Findings were provided to GALDINO Haddad at 10:52 am.
== END 2018-12-23 13:23 | disposition home or self-care (01) | DRG 463 ==
LOC: C.ER 22:26 → C.9E 12-19 05:22 → C.5S 12-19 06:09 → OBSVTOIN 12-22 14:02
PROVIDERS: ADMIT Family Medicine; ATTEND Family Medicine
DX: N10 Acute pyelonephritis (principal); N20.0 Calculus of kidney; N83.201 Unspecified ovarian cyst, right side